=== PATIENT | female | born 1940 | race Caucasian/White ===

== ENCOUNTER 2020-07-06 12:19 | Observation (INO) | payer MEDICARE, OTHER ==
[~2020-07-06] VITALS: Ht 160 cm; Wt 88.5 kg
[~2020-07-06 12:19] MED LIST: CIPR500T94 PO; EYE VITAMIN PO; LEVO100T5 PO; LISI-517 PO; LOPE2CAP3 PO; MINERAL PO; PHEN100C PO; PHEN32.424 PO
[2020-07-06] MEDS ORDERED: IV NORMAL SALINE 500ML 250 ML IV ONE (13:00)
[2020-07-06 13:10] LABS: BASO # 0.1 x10^3/uL (0.0-0.2); BASO % 1 % (0-3); CALCIUM 8.9 mg/dL (8.5-10.1); CREATININE 0.9 mg/dL (0.6-1.0); EOS # 0.2 x10^3/uL (0.0-0.7); EOS % 2 % (0-3); GFR 60.4; HEMATOCRIT 46.1 % (36.0-47.0); HEMOGLOBIN 15.7 g/dL (12.0-15.5); LYMPH # 2.7 x10^3/uL (1.0-4.8); LYMPH % 27 % (24-48); MEAN CORPUSCULAR HEMOGLOBIN 30 pg (25-35); MEAN CORPUSCULAR HGB CONC 34 g/dL (31-37); MEAN CORPUSCULAR VOLUME 89 fL (79-100); MONO # 0.7 x10^3/uL (0.0-1.1); MONO % 7 % (0-9); NEUT # 6.4 x10^3uL (1.8-7.7); NEUT % 63 % (31-73); PLATELET COUNT 148 x10^3/uL (140-400); POTASSIUM 4.3 mmol/L (3.5-5.1); RED CELL DISTRIBUTION WIDTH 14.8 % (11.5-14.5); WHITE BLOOD COUNT 10.1 x10^3/uL (4.0-11.0)
--- NOTE | 2020-07-06 13:10 | PHYS DOC ---
Past History Past Medical History: Hypertension, Hypothyroid, Seizure Past Surgical History: Hysterectomy, Other Additional Past Surgical Histo: 18 in intestines removed;back; bladder sling; veateck vena cava filter Alcohol Use: Rarely General Adult EDM: Chief Complaint: RAPID HEART RATE HPI: HPI: Patient is a 79-year-old female who presents with rapid heart rate. Patient states that she was seen at her physician this morning for right leg pain, and right shoulder pain after a fall a couple weeks ago. Patient states "they told me that my blood pressure in my heart rate was really high and I needed to be seen in the emergency room". Patient denies chest pain, shortness of breath, dizziness. Patient has history of hypothyroid, CHF, hypertension, DVT. Review of Systems: Review of Systems: Constitutional: Denies fever or chills Eyes: Denies change in visual acuity HENT: Denies nasal congestion or sore throat Respiratory: Denies cough or shortness of breath Cardiovascular: Denies chest pain or edema GI: Denies abdominal pain, nausea, vomiting, bloody stools or diarrhea : Denies dysuria Musculoskeletal: Denies back pain or joint pain Integument: Denies rash Neurologic: Denies headache, focal weakness or sensory changes Endocrine: Denies polyuria or polydipsia Lymphatic: Denies swollen glands Psychiatric: Denies depression or anxiety Current Medications: Current Meds: Current Medications Medications (Trade) Dose Ordered Sig/Niko Start Time Stop Time Status Last Admin Dose Admin Sodium Chloride 250 ml @ 0 mls/hr 1X ONCE 07/06/20 13:00 07/06/20 13:01 SD Allergies: Allergies: Allergies Coded Allergies Type Severity Reaction Last Updated Verified No Known Drug Allergies 07/06/20 No Physical Exam: PE: Constitutional: Well developed, well nourished, no acute distress, non-toxic appearance. [] HENT: Normocephalic, atraumatic, bilateral external ears normal, oropharynx moist, no oral exudates, nose normal. [] Eyes: PERRLA, EOMI, conjunctiva normal, no discharge. [] Neck: Normal range of motion, no tenderness, supple, no stridor. [] Cardiovascular: Sinus tachycardia, no murmur [] Lungs & Thorax: Bilateral breath sounds clear to auscultation [] Abdomen: Bowel sounds normal, soft, no tenderness, no masses, no pulsatile masses. [] Skin: Warm, dry, no erythema, no rash. [] Back: No tenderness, no CVA tenderness. [] Extremities: Right leg and shoulder tenderness, no cyanosis, no clubbing, ROM intact, no edema. [] Neurologic: Alert and oriented X 3, normal motor function, normal sensory func tion, no focal deficits noted. [] Psychologic: Affect normal, judgement normal, mood normal. [] Current Patient Data: Vital Signs: Vital Signs Date Time Temp Pulse Resp B/P (MAP) Pulse Ox O2 Delivery O2 Flow Rate FiO2 07/06/20 12:25 98.1 133 22 137/88 (104) 96 Room Air EKG: EKG: [] Radiology/Procedures: Radiology/Procedures: []EXAM: Right tibia and fibula, 2 views; right hip and pelvis, 3 views. HISTORY: Fall. Pain. COMPARISON: None. FINDINGS: Right tibia and fibula: 2 views of the right tibia and fibula are obtained. There is no acute fracture, dislocation or subluxation. There is mild tricompartmental spurring involving the right knee. There is the patella and anterior tibial tubercle. There is degenerative change at the tibiotalar joint which is not formally assessed on this exam. Pelvis and right hip: A frontal view the pelvis and 2 views of the right hip are obtained. There is no acute fracture, dislocation or subluxation. There is a transitional lumbosacral segment. There is degenerative change involving the lower lumbar spine. There is an IVC filter. There are postoperative changes involving the ventral abdominal wall. There are pelvic fluid was. The sacroiliac joints are intact. The pubis symphysis intact. IMPRESSION: 1. No acute osseous finding. 2. Mild osteoarthritis of the right knee and suspected degenerative change involving the right ankle, the latter of which is not formally assessed on this exam. 3. Degenerative change involving the lumbar spine, not formally assessed on this exam. Electronically signed by: Ela Monterroso MD (07/06/2020 1:36 PM) [id number] EXAM: Right shoulder, 3 views. HISTORY: Fall. Pain. COMPARISON: None. FINDINGS: 3 views of the right shoulder obtained. There is no acute fracture, dislocation or subluxation. There is mild acromioclavicular joint spurring. There is a suspected type III acromion. There is degenerative change at the greater tuberosity. There is degenerative change involving the visualized cervical spine. IMPRESSION: Right shoulder osteoarthritis. No acute osseous finding. Electronically signed by: Ela Monterroso MD (07/06/2020 1:33 PM) [id number] EXAM: Right tibia and fibula, 2 views; right hip and pelvis, 3 views. HISTORY: Fall. Pain. COMPARISON: None. FINDINGS: Right tibia and fibula: 2 views of the right tibia and fibula are obtained. There is no acute fracture, dislocation or subluxation. There is mild tricompartmental spurring involving the right knee. There is the patella and anterior tibial tubercle. There is degenerative change at the tibiotalar joint which is not formally assessed on this exam. Pelvis and right hip: A frontal view the pelvis and 2 views of the right hip are obtained. There is no acute fracture, dislocation or subluxation. There is a transitional lumbosacral segment. There is degenerative change involving the lower lumbar spine. There is an IVC filter. There are postoperative changes involving the ventral abdominal wall. There are pelvic fluid was. The sacroiliac joints are intact. The pubis symphysis intact. IMPRESSION: 1. No acute osseous finding. 2. Mild osteoarthritis of the right knee and suspected degenerative change involving the right ankle, the latter of which is not formally assessed on this exam. 3. Degenerative change involving the lumbar spine, not formally assessed on this exam. Electronically signed by: Ela Monterroso MD (07/06/2020 1:36 PM) [id number] EXAM: Chest, single view. HISTORY: Tachycardia. COMPARISON: None. FINDINGS: A frontal view of the chest obtained. There is no infiltrate, pleural effusion or pneumothorax. The heart is normal in size. There is suspected bilateral basilar atelectasis. IMPRESSION: No acute pulmonary finding. Electronically signed by: Ela Monterroso MD (07/06/2020 1:26 PM) [id number] Heart Score: C/O Chest Pain: No HEART Score for Chest Pain: HEART Score for Chest Pain Response (Comments) Value History Moderately Suspicious 1 ECG Normal 0 Age > 65 2 Risk Factors 1 or 2 Risk Factors 1 Total 4 Risk Factors: Risk Factors: DM, Current or recent (<one month) smoker, HTN, HLP, family history of CAD, obesity. Risk Scores: Score 0 - 3: 2.5% MACE over next 6 weeks - Discharge Home Score 4 - 6: 20.3% MACE over next 6 weeks - Admit for Clinical Observation Score 7 - 10: 72.7% MACE over next 6 weeks - Early Invasive Strategies Course & Med Decision Making: Course & Med Decision Making Pertinent Labs and Imaging studies reviewed. (See chart for details) Chest x-ray is negative for any acute abnormality. All imaging negative for fracture. Patient was given 250 normal saline. Heart rate in the 140s. Patient denies chest pain, shortness of breath, palpitations. UTI is positive for nitrates and Rocephin given. Lactic is 2.3. Spoke with Dr. Oliveira about admitting patient to hospital. Discussed admission with patient. Valentin Disclaimer: Valentin Disclaimer: This electronic medical record was generated, in whole or in part, using a voice recognition dictation system. Departure Departure: Impression: Primary Impression: Tachycardia Disposition: ADMITTED INPT THIS HOSP Admitting Physician: Andrew Oliveira Condition: GOOD Referrals: CARLA DIXON (PCP) TERRA HEATH APRN Jul 06, 2020 13:10
[2020-07-06 13:15] LABS: ALBUMIN 3.8 g/dL (3.4-5.0); TOTAL BILIRUBIN 0.3 mg/dL (0.2-1.0); TOTAL PROTEIN 7.6 g/dL (6.4-8.2)
--- NOTE | 2020-07-06 13:28 | RAD ---
EXAM: Chest, single view. HISTORY: Tachycardia. COMPARISON: None. FINDINGS: A frontal view of the chest obtained. There is no infiltrate, pleural effusion or pneumotho rax. The heart is normal in size. There is suspected bilateral basilar atelectasis. IMPRESSION: No acute pulmonary finding. Electronically signed by: Ela Monterroso MD (07/06/2020 1:26 PM) [id number]
--- NOTE | 2020-07-06 13:29 | EKG ---
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
--- NOTE | 2020-07-06 13:36 | RAD ---
EXAM: Right shoulder, 3 views. HISTORY: Fall. Pain. COMPARISON: None. FINDINGS: 3 views of the right shoulder obtained. There is no acute fracture, dislocation or subluxat ion. There is mild acromioclavicular joint spurring. There is a suspected type III acromion. There is degenerative change at the greater tuberosity. There is degenerative change involving the visualized cervical spine. IMPRESSION: Right shoulder osteoarthritis. No acute osseous finding. Electronically signed by: Ela Monterroso MD (07/06/2020 1:33 PM) [id number]
--- NOTE | 2020-07-06 13:38 | RAD ---
EXAM: Right tibia and fibula, 2 views; right hip and pelvis, 3 views. HISTORY: Fall. Pain. COMPARISON: None. FINDINGS: Right tibia and fibula: 2 views of the right tibia and fibula are obtained. There is no acute fractur e, dislocation or subluxation. There is mild tricompartmental spurring involving the right knee. Ther e is the patella and anterior tibial tubercle. There is degenerative change at the tibiotalar joint w hich is not formally assessed on this exam. Pelvis and right hip: A frontal view the pelvis and 2 views of the right hip are obtained. There is n o acute fracture, dislocation or subluxation. There is a transitional lumbosacral segment. There is d egenerative change involving the lower lumbar spine. There is an IVC filter. There are postoperative changes involving the ventral abdominal wall. There are pelvic fluid was. The sacroiliac joints are i ntact. The pubis symphysis intact. IMPRESSION: 1. No acute osseous finding. 2. Mild osteoarthritis of the right knee and suspected degenerative change involving the right ankle, the latter of which is not formally assessed on this exam. 3. Degenerative change involving the lumbar spine, not formally assessed on this exam. Electronically signed by: Ela Monterroso MD (07/06/2020 1:36 PM) [id number]
[2020-07-06 14:54] LABS: COLOR,URINE YELLOW
[2020-07-06 14:55] LABS: BACTERIA,URINE 0 /HPF (0-FEW); BILIRUBIN,URINE NEG (NEG); CLARITY,URINE HAZY; GLUCOSE,URINE NEG (NEG); NITRITE,URINE POS (NEG); RBC,URINE 0 /HPF (0-2); UROBILINOGEN,URINE 0.2 mg/dL (0.2 mg/dL)
[2020-07-06] MEDS ORDERED: cefTRIAXone SODIUM 1 GM VIAL ONE (15:27)
[2020-07-06] MEDS ORDERED: IV NORMAL SALINE 50ML 50 ML ONE (15:27)
[2020-07-06] MEDS ORDERED: MORPHINE SULFATE 4 MG/ML DISP.SYRIN. IV ONE ×2 (16:45→17:00)
[2020-07-06] MEDS ORDERED: MORPHINE SULFATE 4 MG/ML DISP.SYRIN. ONE (16:48)
[2020-07-06 19:14] VITALS: BP 141/64
[2020-07-06] MEDS ORDERED: LISI20TA18 PO (20:10)
[2020-07-06] MEDS ORDERED: MORPHINE SULFATE 4 MG/ML DISP.SYRIN. IV PRN (20:15)
[2020-07-06] MEDS ORDERED: PHENYTOIN SODIUM EXTENDED 100 MG CAPSULE PO SCH (21:00)
--- NOTE | 2020-07-06 21:15 | NUR ---
The patient, ROSEMARIE PITTS, 79 y/o, F admitted by RADHA BENNETT MD, was given written information regarding hospital policies, unit procedures and contact persons. Valuables were checked and vital signs noted. PT was at a doctor's appointment when they noted tachycardia and sent the PT to the ER. PT admitted for observation. PT in NSR with normal heart rate at time of admission. PT had a fall a few weeks ago (states she lost her balance getting up from toilet), complaining of RT thigh and shoulder pain currently at 3/10. PT given morphine in ER with good pain relief. 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 PT has mild hearing loss but hearing aids are at home. PT has stress incontinence, wears 2 briefs at a time. PT wears glasses and uses a lighted magnifying glass for reading. PT uses a cane and walker at home. PT lives home alone. PT is a from 2003 and her significant other a year ago. PT's son has recently moved back to the area and is point of contact. PT's daughter lives out of state. PT no longer drives. PT receives meals from the [facility] daily. PT is UTD on flu vaccine and is due to get COVID vaccine on , 07/09/2020. 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 PT wishes to be DNR and states paperwork is at home. notified and orders placed for DNR status. PT is a never smoker and a nondrinker. Surgical history includes 18 inch bowel resection in 1966 following ruptured appendix, hysterectomy 1966, umbilical hernia repair 1981, bladder repair 1983, lumbar back surgery 2008, bladder sling 2009 and IVC filter placement 2011. Home medications reconciled. PT wishes to take her own medications and they have been sent to Pharmacy for scanner sticker placement. PT has notified son of admission.
[2020-07-06 22:28] VITALS: BP 128/64
[2020-07-07 05:17] VITALS: BP 128/71
[2020-07-07] MEDS ORDERED: LEVOTHYROXINE 100 MCG TABLET PO SCH (06:00)
[2020-07-07 08:09] VITALS: BP 128/71
--- NOTE | 2020-07-07 08:31 | HP ---
ADMIT DATE: 07/06/2020 ATTENDING PHYSICIAN: Dr. Bennett. CHIEF COMPLAINT: Tachycardia. HISTORY OF PRESENT ILLNESS: The patient is a very pleasant, active 79-year-old female, very independent. She tripped in home sustaining injury to the right hip and right shoulder. She had no evidence of any long bone fracture. She went to see her primary care doctor at the office. They found a rapid heart rate, it appears sinus in nature, rate of 130 per minute. She was really asymptomatic. Because of the tachycardia, she was instructed to go to the Emergency Room for further evaluation. PAST MEDICAL HISTORY: Significant for idiopathic seizure disorder, hypertension, and hypothyroidism, on replacement. PAST SURGICAL HISTORY: Includes hysterectomy, partial colectomy, bladder sling and also inferior vena cava filter placement. SOCIAL HISTORY: She is a nonsmoker, nondrinker. ALLERGIES: She has no known drug allergies. FAMILY HISTORY: Mom of complications of pancreatic cancer in her mid 70s. Father of heart disease also in his mid 70s. CURRENT MEDICATIONS: Include Synthroid 100 mcg daily, lisinopril, phenobarbital and Dilantin. REVIEW OF SYSTEMS: Unremarkable for any COVID exposure, fevers, chills, sweats, palpitations. She really did not notice the tachycardia. She was admitted for monitoring. All other systems reviewed and turned to be negative. PHYSICAL EXAMINATION: GENERAL: When I saw her, this is a pleasant elderly female, who appeared in no acute distress. VITAL SIGNS: Her initial vital signs showed a blood pressure of 128/71, pulse is 70 and regular, he had remained between 70 and 90 throughout the whole night. Temperature was 98.2, oxygen saturation 97% on room air. HEENT: Head is without trauma. Pupils are reactive. Sclerae nonicteric. Oropharynx is clear. NECK: Supple, no bruits or stridor. LUNGS: Clear. CARDIOVASCULAR: Showed regular heart tones. No gallops. ABDOMEN: Soft. EXTREMITIES: Without edema. NEUROLOGIC: Focally intact. SKIN: Warm and dry. PERTINENT LABORATORY STUDIES: Admission hemoglobin was 15.7 g/dL with a white count of 10,000. Electrolytes within normal range. Cardiac enzymes negative for coronary ischemia. Liver panel was normal. ASSESSMENT: 1. A 79-year-old female with brief episode of asymptomatic tachycardia. She is now converted to sinus rhythm, has been in sinus rhythm during the night. She is asymptomatic. 2. Recent fall with contusion to the right thigh and shoulder. No obvious long bone fracture. 3. Idiopathic seizure disorder. 4. Essential hypertension, normotensive. 5. Hypothyroidism, on replacement. PLAN: 1. Observation status. 2. She already is on good blood pressure meds. I would not offer any beta blockers given her normal heart rate. 3. Telemetry monitoring. 4. Pain management. RADHA BENNETT MD DR: CATHY/zaki JOB#: [id number] / [id number] Nery Alvarez MD
--- NOTE | 2020-07-07 08:37 | DS ---
DATE OF DISCHARGE: 07/07/2020 ATTENDING PHYSICIAN: Dr. Bennett. FINAL DISCHARGE DIAGNOSES: 1. Episode of tachycardia, resolved. 2. Essential hypertension, normotensive. 3. Idiopathic seizure disorder. 4. Recent fall with contusion of right thigh and shoulder, no obvious fractures. HISTORY OF PRESENT ILLNESS: The patient is a very pleasant 79-year-old female who had recently fallen. No loss of consciousness. She sustained an injury to her right thigh. She went to her doctor's office, she was found to have a tachycardia with a rate of 130 per minute. She was admitted for further treatment and evaluation. In the ED, her heart rate had slowed down, had been 130, it slowed down to about 100 and was 70 by the time I saw her. PHYSICAL EXAMINATION: Please see the dictated note. PERTINENT LABORATORY AND X-RAY STUDIES: Her hemoglobin was stable at 15.7 g/dL, white count 10,100. Electrolytes, BUN and creatinine all within normal range. Cardiac enzymes negative for coronary ischemia. Creatinine was 0.9 mg/dL. COURSE IN THE HOSPITAL: The patient was admitted. She was placed on telemetry monitoring. Her heart rate was a sinus rhythm in the low 70s. She had no further tachyarrhythmias. Diet was advanced. Home meds continued. She did well by the next morning. I examined her, her vital signs were stable. Her blood pressure was 128/71. She was afebrile. Lungs were clear and her heart rate showed regular rhythm, no other symptoms. Therefore, she had an episode of asymptomatic tachycardia. She is discharged home with a small script for p.r.n. Percocet 7.5 mg 1 every 6 hours p.r.n. pain. Continuation of her Dilantin, phenobarbital, Synthroid, and lisinopril dose unchanged. She will follow up with her regular physician as scheduled. The patient was then discharged from our hospital in stable condition with explicit instructions and followup care. RADHA BENNETT MD DR: CATHY/zaki JOB#: [id number] / [id number] Nery Alvarez MD
[2020-07-07] MEDS ORDERED: PHENYTOIN SODIUM EXTENDED 100 MG CAPSULE PO SCH ×2 (09:00→21:00)
[2020-07-07] MEDS ORDERED: LISINOPRIL 20 MG TABLET PO SCH (09:00)
[2020-07-07] MEDS ORDERED: PHENobarbital 32.4 MG TABLET. PO SCH (09:00)
--- NOTE | 2020-07-07 09:23 | NUR ---
NSG NOTE; DISCHARGE VERAL AND WRITTEN DISCHARGE INSTRUCTIONS GIVEN TO PT WITH VERBAL UNDERSTANDING DISCHARGED TO HOME AT 0855 VIA W/C ACCOMP BY FAMILY MEMBER WHO PICKED HER UP
--- NOTE | 2020-07-10 11:20 | NUR ---
Infection control: Pt noted to have UTI on testing, lab report rec'd post-DC indicates pt treated appropriately w/IV Rocephin. Call to pt to encourage follow up w/PCP for any additional/ongoing symptoms. [phone] Pt states she is no longer having any UTI symptoms, "just the pain in the legs". She is scheduled to see Dr. Nery Adamson, would like results faxed to that office. Results faxed #[phone].
== END 2020-07-07 08:55 | disposition home or self-care (01) ==
LOC: ER 12:19 → 1 SOUTH 16:29
PROVIDERS: ADMIT Hospitalist; ATTEND Hospitalist
DX: R00.0 Tachycardia, unspecified (principal); I11.0 Hypertensive heart disease with heart failure; I50.9 Heart failure, unspecified; S70.11XA Contusion of right thigh, initial encounter; S40.011A Contusion of right shoulder, initial encounter; G40.309 Generalized idiopathic epilepsy and epileptic syndromes, not intractable, without status epilepticus; E03.9 Hypothyroidism, unspecified; M17.11 Unilateral primary osteoarthritis, right knee; M19.011 Primary osteoarthritis, right shoulder; Z90.710 Acquired absence of both cervix and uterus; Z98.890 Other specified postprocedural states; W19.XXXA Unspecified fall, initial encounter; Y93.89 Activity, other specified; Y92.89 Other specified places as the place of occurrence of the external cause; Y99.8 Other external cause status
CPT/HCPCS: 36415; 71045; 73030; 73502; 73590; 80053; 81001; 83605; 84443; 84484; 85025; 87040; 87086; 93005; 96361; 96365; 96375; 96376; 99285; G0378; J0696; J2270; J7040; 87077; 87186; G0379

== ENCOUNTER 2020-08-27 19:34 | Inpatient (IN) | payer MEDICARE ==
[~2020-08-27] VITALS: Ht 162.6 cm; Wt 84.9 kg
[~2020-08-27 19:34] MED LIST changes: +LISI20TA18 PO
--- NOTE | 2020-08-27 20:59 | PHYS DOC ---
Past History Past Medical History: Hypertension, Hypothyroid, Seizure Past Surgical History: Hysterectomy, Other Additional Past Surgical Histo: 18 in intestines removed;back; bladder sling; veateck vena cava filter Alcohol Use: Rarely Adult General Chief Complaint Chief Complaint: DIZZY/LIGHT HEADED HPI HPI Patient is a 79-year-old female who presents with dizziness/weakness. States she was recently hospitalized for heart issues and on follow-up with her outpatient primary care physician, she was found to have a UTI at that time. Reports having her "blood pressure med" (lisinopril?) Stopped as she was subsequently prescribed Bactrim antibiotic for her urinary tract infection and was told not to take both medications at the same time as it would damage her kidneys. Patient took full course of Bactrim with last dose yesterday. Admits improvement in urinary symptoms but has had generalized fatigue, malaise, dizziness, and decreased p.o. intake and subsequent urine output that has worsened in past 24 hours. Nothing known makes better or worse. Patient reports living home alone, denies any falls or recent fever, no chest pain or shortness of breath. Has extensive past medical history, is a poor historian a nd cannot disclose all past medical history and home medications at this time but does admit she has history of atrial fibrillation and is not on any blood thinners. Review of Systems Review of Systems Fourteen body systems of review of systems have been reviewed. See HPI for pertinent positives and negative responses, other kong all other systems are negative, non-pertinent or non-contributory Current Medications Current Medications Current Medications Medications (Trade) Dose Ordered Sig/Niko Start Time Stop Time Status Last Admin Dose Admin Sodium Chloride 500 ml @ 0 mls/hr 1X ONCE 08/27/20 21:00 08/27/20 21:01 UNV Allergies Allergies Allergies Coded Allergies Type Severity Reaction Last Updated Verified No Known Drug Allergies 07/06/20 No Physical Exam Physical Exam Constitutional: Well developed, well nourished, no acute distress, non-toxic appearance. HENT: Normocephalic, atraumatic, bilateral external ears normal, oropharynx moist, no oral exudates, nose normal. Eyes: PERRLA, EOMI, conjunctiva normal, no discharge. Neck: Normal range of motion, no tenderness, supple, no stridor. Cardiovascular: Heart rate irregularly irregular without rubs or gallops Lungs & Thorax: Bilateral breath sounds clear to auscultation, no respiratory distress Abdomen: Bowel sounds normal, soft, no tenderness, no masses, no pulsatile masses. Nonsurgical abdomen, no peritoneal signs Skin: Warm, dry, no erythema, no rash. Back: No tenderness, no CVA tenderness. Extremities: No tenderness, no cyanosis, no clubbing, ROM intact, no edema. Neurologic: Alert and oriented X 3, cranial nerves II through XII intact, normal motor & sensory function, no focal deficits noted. Unsteady gait, states she feels like she is walking slower than usual Psychologic: Affect normal, judgement normal, mood normal. Current Patient Data Vital Signs Vital Signs Date Time Temp Pulse Resp B/P (MAP) Pulse Ox O2 Delivery O2 Flow Rate FiO2 08/28/20 01:51 98.5 62 20 99/53 (68) 95 Room Air Vital Signs Date Time Temp Pulse Resp B/P (MAP) Pulse Ox O2 Delivery O2 Flow Rate FiO2 08/28/20 02:09 Room Air 08/28/20 01:51 98.5 62 20 99/53 (68) 95 Lab Results Laboratory Tests Test 08/27/20 21:33 08/28/20 02:30 White Blood Count 14.6 x10^3/uL Red Blood Count 5.27 x10^6/uL Hemoglobin 15.7 g/dL Hematocrit 46.2 % Mean Corpuscular Volume 88 fL Mean Corpuscular Hemoglobin 30 pg Mean Corpuscular Hemoglobin Concent 34 g/dL Red Cell Distribution Width 14.4 % Platelet Count 170 x10^3/uL Neutrophils (%) (Auto) 61 % Lymphocytes (%) (Auto) 27 % Monocytes (%) (Auto) 9 % Eosinophils (%) (Auto) 2 % Basophils (%) (Auto) 1 % Neutrophils # (Auto) 8.9 x10^3uL Lymphocytes # (Auto) 4.0 x10^3/uL Monocytes # (Auto) 1.3 x10^3/uL Eosinophils # (Auto) 0.2 x10^3/uL Basophils # (Auto) 0.2 x10^3/uL Sodium Level 138 mmol/L Potassium Level 5.0 mmol/L Chloride Level 102 mmol/L Carbon Dioxide Level 24 mmol/L Anion Gap 12 Blood Urea Nitrogen 49 mg/dL Creatinine 2.5 mg/dL Estimated GFR (Cockcroft-Gault) 18.6 BUN/Creatinine Ratio 20 Glucose Level 112 mg/dL Lactic Acid Level 2.4 mmol/L 2.4 mmol/L Calcium Level 9.1 mg/dL Total Bilirubin 0.2 mg/dL Aspartate Amino Transf (AST/SGOT) 22 U/L Alanine Aminotransferase (ALT/SGPT) 40 U/L Alkaline Phosphatase 44 U/L Troponin I Quantitative < 0.017 ng/mL WB-Wuf-I-Type Natriuretic Peptide 103 pg/mL Total Protein 7.6 g/dL Albumin 3.6 g/dL Albumin/Globulin Ratio 0.9 Current Medications Medications (Trade) Dose Ordered Sig/Niko Route PRN Reason Start Time Stop Time Status Last Admin Dose Admin Sodium Chloride 500 ml @ 0 mls/hr 1X ONCE IV 08/27/20 21:00 08/27/20 21:16 DC 08/27/20 21:56 Sodium Chloride 500 ml @ 0 mls/hr 1X ONCE IV 08/27/20 22:30 08/27/20 22:36 DC 08/27/20 23:00 EKG EKG EKG ordered and interpreted by myself 2056 hrs. as atrial fibrillation with ventricular rate of 90 bpm, unremarkable intervals, no axis deviation, no obvious ischemic findings, no STEMI Radiology/Procedures Radiology/Procedures EXAM: CHEST ONE VIEW. HISTORY: Dizziness. COMPARISON: 07/06/2020. FINDINGS: A frontal view of the chest is obtained. There are no confluent infiltrates. There is no pneumothorax or pleural effusion. The heart is not enlarged. IMPRESSION: 1. No confluent infiltrates. Electronically signed by: Diego Juarez MD (08/27/2020 9:29 PM) [facility] Heart Score C/O Chest Pain: No HEART Score for Chest Pain: HEART Score for Chest Pain Response (Comments) Value History Slighlty/Non-Suspicious 0 ECG Nonspecific Repolarizatio 1 Age > 65 2 Risk Factors >3 Risk Factors or Hx CAD 2 Troponin < Normal Limit 0 Total 5 Risk Factors: Risk Factors: DM, Current or recent (<one month) smoker, HTN, HLP, family history of CAD, obesity. Risk Scores: Risk Factors: DM, Current or recent (<one month) smoker, HTN, HLP, family history of CAD, obesity. Course & Med Decision Making Course & Med Decision Making Patient hypotensive otherwise hemodynamically stable. HPI for generalized malaise and patient with recently treated UTI with Bactrim. Physical exam showing a dehydrated patient without any concerning deficits or surgical/emergent findings ER work-up concerning for elevated serum creatinine, likely acute kidney injury from recent Bactrim use. I contacted hospitalist at [facility] and discussed case at length, he agreed need for admission for continued fluid rehydration I have updated patient on proposed plan of care that involved hospital admission and she was amenable. States she has been trying to get into an assisted living facility recently and is hoping she can talk about this and receive resources prior to hospital departure All questions and concerns addressed prior to ER departure to [facility] for admission Critical Care Time This patient required critical care. Due to the fact that the patient required a significant amount of one on one physician - patient contact time, ordering and review of studies, arranging urgent treatment with development of a management plan, evaluation of patients response to treatment with frequent reassessments, and discussions with other providers this patient required 45 minutes of critic al care time. Critical care time was indicated due to the inherent instability and/or potential for instability in this patient. The critical care time that is allocated to this patient is above and beyond any time spent on any other billable procedures performed on this patient. Dragon Disclaimer Dragon Disclaimer This electronic medical record was generated, in whole or in part, using a voice recognition dictation system. Departure Departure: Impression: Primary Impression: MALCOLM (acute kidney injury) Additional Impression: Dizziness Disposition: ADMITTED INPATIENT Admitting Physician: Andrew Oliveira Condition: STABLE Referrals: CARLA DIXON (PCP) Problem Qualifiers TIFFANY BECERRA DO Aug 27, 2020 20:59
[2020-08-27] MEDS ORDERED: IV NORMAL SALINE 500ML 500 ML IV ONE ×2 (21:00→22:30)
--- NOTE | 2020-08-27 21:03 | EKG ---
[address] [address] Test Date: 2020-08-27 Test Time: 20:47:37 Pat Name: ROSEMARIE PITTS Department: Room: Gender: F Python Java Developer: : [id number] Requested By: TIFFANY BECERRA Order Number: [id number] Reading MD: Measurements Intervals Oto Rate: 90 P: MO: QRS: 60 QRSD: 82 T: 68 QT: 364 QTc: 449 Interpretive Statements IRREGULAR RHYTHM, NO P-WAVE FOUND R-S TRANSITION ZONE IN V LEADS DISPLACED TO THE LEFT OTHERWISE NORMAL ECG RI6.02 No previous ECG available for comparison
--- NOTE | 2020-08-27 21:31 | RAD ---
EXAM: CHEST ONE VIEW. HISTORY: Dizziness. COMPARISON: 07/06/2020. FINDINGS: A frontal view of the chest is obtained. There are no confluent infiltrates. There is no pneumothorax or pleural effusion. The heart is not en larged. IMPRESSION: 1. No confluent infiltrates. Electronically signed by: Diego Juarez MD (08/27/2020 9:29 PM) [facility]
[2020-08-27 22:05] LABS: BASO # 0.2 x10^3/uL (0.0-0.2); BASO % 1 % (0-3); EOS # 0.2 x10^3/uL (0.0-0.7); EOS % 2 % (0-3); HEMATOCRIT 46.2 % (36.0-47.0); HEMOGLOBIN 15.7 g/dL (12.0-15.5); LYMPH % 27 % (24-48); MEAN CORPUSCULAR HEMOGLOBIN 30 pg (25-35); MEAN CORPUSCULAR HGB CONC 34 g/dL (31-37); MEAN CORPUSCULAR VOLUME 88 fL (79-100); MONO # 1.3 x10^3/uL (0.0-1.1); MONO % 9 % (0-9); NEUT # 8.9 x10^3uL (1.8-7.7); NEUT % 61 % (31-73); PLATELET COUNT 170 x10^3/uL (140-400); RED BLOOD COUNT 5.27 x10^6/uL (3.50-5.40); RED CELL DISTRIBUTION WIDTH 14.4 % (11.5-14.5); WHITE BLOOD COUNT 14.6 x10^3/uL (4.0-11.0)
[2020-08-27 22:15] LABS: CALCIUM 9.1 mg/dL (8.5-10.1); CREATININE 2.5 mg/dL (0.6-1.0); GFR 18.6
[2020-08-27 22:28] LABS: ALBUMIN 3.6 g/dL (3.4-5.0); ALBUMIN/GLOBULIN RATIO 0.9 (1.0-1.7); TOTAL BILIRUBIN 0.2 mg/dL (0.2-1.0); TOTAL PROTEIN 7.6 g/dL (6.4-8.2)
--- NOTE | 2020-08-27 22:41 | RAD ---
Exam: CT head INDICATION: Dizzy TECHNIQUE: Sequential axial images through the head were obtained without the administration of IV co ntrast. Exposure: One or more of the following in the visualized dose reduction techniques were utilized for this examination: 1. Automated exposure control 2. Adjustment of the MA and/or KV according to patient size 3. Use of iterative of reconstructive technique Comparisons: None FINDINGS: No focal parenchymal lesion or hemorrhage is identified. There is no midline shift or sulcal effaceme nt. Mild patchy evidence in the periventricular white matter. No acute vascular territory infarction is i dentified. Mcdnoald-white distinction is preserved. The ventricular system is within normal limits without compression hydrocephalus. The basal cisterns are well maintained. The visualized portions of the paranasal sinuses and mastoid air cells are well-pneumatized. No acute fractures. IMPRESSION: Mild small vessel schema change, technically age indeterminate without recent prior imaging. Electronically signed by: Yao Coker MD (08/27/2020 10:38 PM) [facility]
[2020-08-28] MEDS ORDERED: ACETAMINOPHEN 325 MG TABLET PO PRN
[2020-08-28 01:51] VITALS: BP 99/53
[2020-08-28] MEDS: IV NORMAL SALINE 1,000ML 1,000 ML IV SCH ×2 (02:35→16:07)
[2020-08-28] MEDS ORDERED: PHEN100C PO ×2 (03:57→06:22)
[2020-08-28 05:43] VITALS: BP 103/47
[2020-08-28] MEDS: LEVOTHYROXINE 100 MCG TABLET PO SCH (06:30)
[2020-08-28 06:37] LABS: CALCIUM 8.3 mg/dL (8.5-10.1)
[2020-08-28] MEDS: PHENYTOIN SODIUM EXTENDED 100 MG CAPSULE PO SCH (08:03)
--- NOTE | 2020-08-28 09:35 | HP ---
ADMIT DATE: 08/27/2020 ATTENDING PHYSICIAN: Dr. Oliveira. PRIMARY CARE PHYSICIAN: Dr. Nery Adamson. CHIEF COMPLAINT: Weakness. HISTORY OF PRESENT ILLNESS: The patient is a pleasant 79-year-old female who has been living independently at home. She presents with weakness, dizziness, low blood pressure and an elevated creatinine. She had been on lisinopril, recently this has been stopped. She also had a 5-day course of trimethoprim and sulfa. I do not know what her baseline creatinine is, but clinically she appears dehydrated. Blood pressure was marginal 90 mmHg. She was admitted then with acute renal failure, probably related to dehydration and antibiotics and symptomatic hypotension. PAST MEDICAL HISTORY: Significant for idiopathic seizure disorder. She has hypothyroidism and essential hypertension, currently normotensive. PAST SURGICAL HISTORY: Multiple surgical history, hysterectomy for dysfunctional uterine bleeding. She had 18 inches of the intestine removed, bladder sling, inferior vena cava filter. MEDICATIONS: Her current medicines include recent course of trimethoprim and sulfa, lisinopril, Dilantin 300 mg daily and phenobarbital. ALLERGIES: She has no recorded drug allergies. HABITS: She is a nonsmoker and nondrinker. FAMILY HISTORY: Mom in her mid 70s with complications of heart disease. Father at age 71 of coronary artery disease. SOCIAL HISTORY: She is . She lives alone. She has a son and a [id number] who lives in town who buys her groceries. She has difficulty seeing due to macular degeneration. She does not drive anymore. She is afraid to use the oven because she cannot see that well. She does a lot of microwave cooking. She gets along with the help of a walker. She has had some dizziness, no recent falls. REVIEW OF SYSTEMS: All other systems reviewed and found to be negative. PHYSICAL EXAMINATION: GENERAL: When I saw her, this is a pleasant elderly female. VITAL SIGNS: Initial vital signs in the ED showed a blood pressure of 98/47, pulse was 100. Repeated the next morning is up to 103/47, pulse is down to 68. She was afebrile. Oxygen saturation 97% on room air. HEENT: Head is without trauma. Pupils are reactive. Sclerae nonicteric. Oropharynx clear. NECK: Supple, no bruits. LUNGS: Clear. Cardiovascular: Regular heart tones. No gallop. ABDOMEN: Soft. No organomegaly. Bowel sounds are hypoactive. EXTREMITIES: Showed no cyanosis or edema. NEUROLOGIC: Focally intact. Speech is fluent. SKIN: Warm and dry. LABORATORY DATA: Admission hemoglobin 15.7 g/dL in a hemoconcentrated state. White count 14,600. Creatinine is 2.5 mg/dL, BUN 49, potassium 5.0 mEq. Blood sugar is adequate. Transaminases were normal. Bilirubin normal. Cardiac enzymes negative for coronary ischemia. The obligatory CT of the head showed mild small vessel ischemic changes, no acute strokes or bleeds identified. Chest x-ray showed no pathology. ASSESSMENT: 1. This 79-year-old female has acute renal failure due to a combination of dehydration and her sulfa drug use. 2. Recent urinary tract infection, treated. 3. Macular degeneration. 4. Generalized debilitation. 5. Idiopathic seizure disorder, on Dilantin. PLAN: 1. Admit to the inpatient unit. 2. IV hydration. 3. Serial chemistries. 4. Diet as tolerated. 5. We have held her lisinopril. 6. Continue seizure meds. 7. We had a long discussion regarding placement. At this time, she wants to go home. She had thought about fci, moving, but the limiting factor is cost at this time. She is a DNR per advanced directive. We will respect her wishes. CATHY/ANTONINA DR: CATHY/zaki TID: [id number] CC: Nery Adamson
[2020-08-28 10:20] VITALS: BP 93/59
[2020-08-28 13:59] VITALS: BP 150/53
[2020-08-28 19:29] VITALS: BP 107/57
[2020-08-28] MEDS ORDERED: PHENobarbital 32.4 MG TABLET. PO SCH (21:00)
[2020-08-28 23:09] VITALS: BP 116/62
[2020-08-29 05:48] VITALS: BP 114/59
[2020-08-29] MEDS: PHENYTOIN SODIUM EXTENDED 100 MG CAPSULE PO SCH (08:20)
[2020-08-29] MEDS: LEVOTHYROXINE 100 MCG TABLET PO SCH (08:21)
[2020-08-29 09:19] LABS: CALCIUM 8.1 mg/dL (8.5-10.1); CREATININE 1.2 mg/dL (0.6-1.0); GFR 43.3; POTASSIUM 4.8 mmol/L (3.5-5.1)
--- NOTE | 2020-08-29 21:39 | DS ---
DATE OF DISCHARGE: 08/29/2020 ATTENDING PHYSICIAN: Dr. Oliveira. DISCHARGE DIAGNOSES: 1. Dehydration, rehydrated. 2. Recent urinary tract infection, treated. 3. Macular degeneration. 4. Generalized debilitation, improved. 5. Idiopathic seizure disorder. HISTORY AND PHYSICAL: The patient is a 79-year-old female who has significant visual problems. She has been living independently. She has a son and a [id number] that come by and get groceries and run errands for her. She was admitted with weakness and dehydration and elevation of creatinine due to dehydration, also due to recent trimethoprim/sulfa use. PHYSICAL EXAMINATION: Please see the dictated note. PERTINENT LABORATORY AND X-RAY STUDIES: Admission hemoglobin was 15.7 g/dL with a white count of 14,000. This was in a hemoconcentrated state. Potassium was 5.0 mEq. Admission BUN was 49, creatinine 2.5 mg/dL respectively. Sugars were normal. Transaminases normal and cardiac enzymes negative for coronary ischemia. Followup chemistry the next day shows a creatinine down to 2.0, BUN 48, and a third one was still pending at the time of discharge. COURSE IN THE HOSPITAL: The patient was admitted. We stopped her lisinopril. Blood pressure was marginal improved. She was feeling better. Diet was advanced. We got serial chemistries. She is not on any diuretics. I suggested that she can stop the seizure medicines, but she is reluctant. She will continue her Dilantin and phenobarbital. This was continued. By the third hospital day, she was feeling much better. Appetite good. She ate all of her breakfast. Blood pressure was up to 116/62. Pulse is regular. She was afebrile and her oxygen saturations were was 94% on room air. Her lungs were clear. Her heart rate was regular. We had talked about going to a higher level of care. Right now, the prohibitive factor is cost. Therefore, she was happy that she can go home. Therefore, she was discharged home in stable condition with explicit instructions and followup care. Her discharge meds are simplified. We had stopped her lisinopril. She should continue her Dilantin, phenobarbital, and Synthroid doses unchanged. She will follow up with her regular physician, Dr. Adamson, as scheduled. The patient was then discharged from our hospital in stable condition with explicit instructions and followup care. SY/YOLANDA/MAN DR: She TID: [id number] CC: Nery Adamson MD
== END 2020-08-29 10:10 | disposition home or self-care (01) | DRG 640 ==
LOC: ER 19:34 → 1 SOUTH 23:58
PROVIDERS: ADMIT Hospitalist; ATTEND Hospitalist
DX: E86.0 Dehydration (principal); N17.0 Acute kidney failure with tubular necrosis; N39.0 Urinary tract infection, site not specified; E03.9 Hypothyroidism, unspecified; G40.909 Epilepsy, unspecified, not intractable, without status epilepticus; H35.30 Unspecified macular degeneration; T36.8X5A Adverse effect of other systemic antibiotics, initial encounter; I10 Essential (primary) hypertension; I48.91 Unspecified atrial fibrillation; Z82.49 Family history of ischemic heart disease and other diseases of the circulatory system; Z90.710 Acquired absence of both cervix and uterus; Y92.89 Other specified places as the place of occurrence of the external cause
CPT/HCPCS: 36415; 70450; 71045; 80048; 80053; 83605; 83880; 84484; 85025; 87040; 93005; 96360; 96361; J7040; 99291-25; J7030